=== PATIENT | female | born 1940 | race African-American/Black ===

== ENCOUNTER 2016-11-18 12:47 | Inpatient (IN) | payer MEDICARE, OTHER ==
[2016-11-18 13:10] VITALS: BP 140/48
--- NOTE | 2016-11-18 14:02 | ED Physician Chart ---
Chief Complaint/HPI - Patient Information Date Seen:: 11/18/16 Time Seen:: 13:10 Chief Complaint:: AMS/ Altered Mental Status Changes History of Present Illness:: pt presents with altered mental status changes with increased confusion and dementia; no LOC, C/P, SOB, Abd. pain, A/N/V/D/C, fever, chills, H/As, paresthesias, weakness, vertigo Allergies:: Allergies Allergy/AdvReac Type Severity Reaction Status Date / Time No Known Allergies Allergy Verified 11/18/16 13:02 Vitals:: Vital Signs - 8 hr 11/18/16 11/18/16 13:09 13:10 Temp 97.5 F HR 67 RR 16 BP 140/48 140/48 O2 Sat % 92 Historian:: Patient, Family Member Review:: Nurse's Note Reviewed Review of Systems - Review of Systems General/Constitutional: Fever, Chills, No weight loss, Weakness, No diaphoresis , No edema, No loss of appetite Skin: No skin lesions, No rash, No bruising Head: Headache, No light-headedness Eyes: No loss of vision, No pain, No diplopia ENT: No earache, No sore throat, No tinnitus Neck: No neck pain, No swelling, No thyromegaly, No stiffness, No mass noted Cardio Vascular: No chest pain, No palpitations, No PND, No orthopnea, No edema Pulmonary: No SOB, Cough, No sputum, No wheezing GI: Nausea, Vomiting, Diarrhea, No pain, No melena, No hematochezia, No constipation, No hematemesis G/U: No dysuria, No frequency, No hematuria Musculoskeletal: No bone or joint pain, No back pain, No muscle pain Endocrine: No polyuria, No polydipsia Psychiatric: No prior psych history, No depression, No anxiety, No suicidal ideation Hematopoietic: No bruising, No lymphadenopathy Allergic/Immuno: No urticaria, No angioedema Neurological: No syncope, No focal symptoms, Weakness, No paresthesia, Headache , No seizure, No dizziness, Confusion, No vertigo Past Medical History - Past Medical History Past Medical History: Arthritis, Dementia, Other (Lung Cancer) Family History: Diabetes Melitus, HTN, Cancer Social History: Smoker, No Alcohol, No Drug Use Surgical History: None Psychiatricy History: Dementia Medication: Reviewed Family Medical History - Family Member Son Living Status: Still Living Hx Family Cancer: No Hx Family Hypertension: No Hx Family Stroke: No Hx Family Diabetes: No Hx Family Seizures: No Hx Family Dementia: No Hx Family AIDS: No Hx Family Psychiatric Problems: No Physical Exam - Physical Examination General/Constitutional: Awake, Well-developed, well-nourished, Alert, No distress, GCS 15, Non-toxic appearing, Ambulatory Head: Atraumatic Eyes: Lids, conjuctiva normal, PERRL, EOMI Skin: Nl inspection, No rash, No skin lesions, No ecchymosis, Well hydrated, No lymphadenopathy ENMT: External ears, nose nl, Nasal exam nl, Lips, teeth, gums nl Neck: Nontender, Full ROM w/o pain, No JVD, No nuchal rigidity, No bruit, No mass, No stridor Respiratory: Nl effort/Exclusion, Clear to Auscultation, No Wheeze/Rhonchi/Rales Cardio Vascular: RRR, No murmur, gallop, rubs, NL S1 S2 GI: No tenderness/rebounding/guarding, No organomegaly, No hernia, Normal BS's, Nondistended, No mass/bruits, No McBurney tenderness : No CVA tenderness Extremities: No tenderness or effusion, Full ROM, normal strength in all extremities, No edema, Normal digits & nails Neuro/Psych: Alert/oriented, DTR's symmetric, Normal sensory exam, Normal motor strength, Judgement/insight normal, Mood normal, Normal gait, No focal deficits Other Neuro/Psych comments:: Disoriented and confused Misc: normal gait, Normal back, No paraspinal tenderness Labs/Radiology/EKG Results - Lab Results Results: BNP: 382 - Radiology Results Results: X-Rays: NAD - EKG Interpretations Rate & Rhythm: NSR Comments:: non-specific ST-T changes ED Septic Shock - . Is Septic Shock (SBP<90, OR Lactate>4 mmol\L) present?: No - <6hrs of presentation: Vital Signs: Vital Signs - 8 hr 11/18/16 11/18/16 13:09 13:10 Temp 97.5 F HR 67 RR 16 BP 140/48 140/48 O2 Sat % 92 Reassessment (Disposition) - Reassessment Reassessment Condition:: Improved - Diagnosis Diagnosis:: Dementia; R/O Aizheimer's Disease - Aftercare/Follow up Instructions Aftercare/Follow-Up Instructions:: Counseled pt regarding lab results/diagnosis & need follow up, Counseled pt & family regarding lab results/diagnosis & need follow up - Patient Disposition Discharge/Transfer:: Acute Care w/in this hosp Accepting Physician:: Dr. Curry Time Called:: 1600 Time Responded:: 16:00 Admitted to:: [facility] Spoke to:: Dr. Seals Admitting Psych Physician:: Dr. Seals Condition at Disposition:: Stable, Improved ED Discharge Plan - Patient Disposition Instructions: Psychosis
[2016-11-18 14:29] LABS: % BASOPHILS 0.4 % (0.0-2.0); % EOSINOPHILS 0.6 % (0.0-5.0); % LYMPHOCYTES 15.1 % (20.0-50.0); % MONOCYTES 4.7 % (2.0-10.0); % NEUTROPHILS 79.2 % (40.0-80.0); HEMATOCRIT 34.7 % (35.0-45.0); HEMOGLOBIN 11.6 gm/dL (11.7-16.1); MEAN CELL VOLUME 87.8 fl (81-100); MEAN CORPUSCULAR HEMOGLOBIN 29.4 pg (27.0-31.0); MEAN CORPUSCULAR HGB CONC 33.5 pg (28.0-36.0); MEAN PLATELET VOLUME 6.5 fl; NEUTROPHILE ABSOLUTE 4.6 Th/cmm (1.8-8.0); PLATELET COUNT 255 Th/cmm (150-400); RED BLOOD COUNT 3.95 Mil/cmm (3.80-5.20); WHITE BLOOD COUNT 5.8 Th/cmm (4.8-10.8)
[2016-11-18 14:45] LABS: ANION GAP 7.5 (7.0-16.0); BUN - UREA NITROGEN 26 mg/dL (7-25); CALCIUM SERUM 9.8 mg/dL (8.6-10.3); CARBON DIOXIDE 31.7 mEq/L (21.0-31.0); CHLORIDE 106 mEq/L (98-107); CHOLESTEROL 236 mg/dL (<200); GLUCOSE 100 mg/dL (70-105); POTASSIUM SERUM 4.2 mEq/L (3.5-5.1); SODIUM SERUM 141 mEq/L (136-145); TRIGLYCERIDES 116 mg/dL (<150)
[2016-11-18 14:46] LABS: INR 0.92 (0.5-1.4); PROTHROMBIN TIME (TEST) 9.6 SECONDS (9.5-11.5)
[2016-11-18 14:47] LABS: TROP I 0.01 ng/mL (0.01-0.05)
--- NOTE | 2016-11-18 15:27 | Diagnostic Imaging Report ---
CT scan of the brain without intravenous contrast HISTORY: Stroke, CVA Total DLP equals 545 CTDI equals 31.9 Axial sections were obtained from the base of the skull to the vertex. There is prominence/enlargement of the ventricular system size. Associated enlargement of cerebral sulci and subarachnoid cisterns. Findings are consistent with changes of generalized cerebral atrophy. No acute parenchymal abnormalities. No acute cerebral hemorrhage. Hypodensity is seen within the supratentorial white matter regions without mass effect. The findings may be associated with chronic small vessel ischemic disease. No extra-axial masses or abnormal fluid collections. Atherosclerotic calcification seen in the region of the vertebral arteries at the base of the skull. IMPRESSION: 1. No acute abnormalities 2. Cerebral atrophy 3. Supratentorial white matter changes that may reflect chronic small vessel ischemic disease 4. Atherosclerotic vascular changes If indicated, a follow-up MRI exam would provide for further characterization and assessment of the above findings.
--- NOTE | 2016-11-18 15:55 | Diagnostic Imaging Report ---
Portable chest x-ray HISTORY: Pain The heart size appears to be within normal limits. Extensive pleural thickening associated with volume loss and upward retraction of the left hilum. Findings most likely related to old inflammatory disease. There is generalized accentuation of the interstitial markings through the right lung. No definite focal processes IMPRESSION: 1. Pleural and parenchymal changes within the left upper hemithorax that appear chronic. 2. Generalized accentuation of interstitial markings throughout the right lung. No definite focal processes
[2016-11-18 20:45] LABS: URINE BILIRUBIN NEGATIVE (NEGATIVE); URINE BLOOD SMALL (NEGATIVE); URINE COLOR YELLOW; URINE GLUCOSE (UA) NEGATIVE (NEGATIVE); URINE KETONE TRACE mg/dL (NEGATIVE); URINE PROTEIN TRACE mg/dL (NEGATIVE); URINE UROBILINOGEN 0.2 E.U./dL (0.2 - 1.0)
[2016-11-18 20:46] LABS: URINE BACTERIA NONE SEEN /hpf (NONE SEEN); URINE EPITHELIAL CELLS NONE SEEN /lpf (FEW); URINE WBC NONE SEEN /hpf (0-5)
[2016-11-18] MEDS ORDERED: MIRTAZAPINE 30 MG PO SCH (21:00)
[2016-11-18] MEDS ORDERED: Magnesium Hydroxide (MOM) 30 mL UDC PO PRN (22:54)
[2016-11-18] MEDS ORDERED: Maalox 30 mL Cup PO PRN (22:54)
[2016-11-18] MEDS ORDERED: Albuterol Nebulizer 2.5mg/3mL HHN SCH (23:00)
[2016-11-19] MEDS: Multivitamin Tab PO SCH (09:37)
[2016-11-19] MEDS: Albuterol Nebulizer 2.5mg/3mL HHN PRN (20:14)
--- NOTE | 2016-11-19 20:34 | Psychosocial Evaluation ---
DATE OF SERVICE: 11/18/2016 Information obtained by interviewing the patient as well as talking to her son and [id number] who happened to be there by the bedside. JUSTIFICATION FOR HOSPITALIZATION: The patient is admitted here on a voluntary basis in view of her acute psychosis. CHIEF COMPLAINT: "I am scared." HISTORY OF PRESENT ILLNESS: This is the first psychiatric hospitalization to [facility] for this 76-year-old -[place] woman who is reported to have been having problems with confusion and memory issues for the past couple of years and it has been getting worse lately. The patient is reported to have been saying things, hearing voices and is very paranoid and is not making much sense. The patient has been trying to wander off and it has been becoming very difficult for the family to contain her. The patient's son is stating that he is in the process of trying to sell mom's place and wants to place her in a shelter facility and since patient could not be contained at a lower level of care, they brought over here for stabilization. Prior to the hospitalization, the patient has been on Remeron 30 mg at bedtime and also receiving gabapentin 300 mg 3 times a day. The patient's sleep and appetite prior to the hospitalization are reported to be poor. PAST PSYCHIATRIC HISTORY: None. MEDICAL HISTORY AND PHYSICAL EXAMINATION: Requested done by Dr. Star Sellers. SUBSTANCE ABUSE HISTORY: None. PHYSICAL OR SEXUAL ABUSE HISTORY: None. LEGAL PROBLEMS: None at this time. STRENGTH AND ASSETS: ____. MENTAL STATUS EXAMINATION: The patient is a 76-year-old thin built woman who is sitting in the wheelchair and cooperative. Eye contact is fair. Mood is noted to be dysphoric. Coping skills are noted to be very poor. The patient has paranoid delusions. The patient is also having visual hallucinations. Insight and judgment at this time are very much impaired. Impulse control seems to be limited. The patient is reported to have been wandering off. The patient's short and long-term are noted to very poor. The patient has been having difficult time to give her date of , but patient is talking about the things from her childhood, but is not able to recall anything that happened yesterday or ____ yesterday. Attention span is also noted to be very poor. The patient is very confused and has been putting herself in a dangerous situation. DIAGNOSTIC IMPRESSION: AXIS I: Psychotic disorder, not otherwise specified. AXIS II: None. AXIS III: As per Dr. Graves. IMMEDIATE TREATMENT PLAN: The patient is going to be observed on inpatient unit, provided with supportive psychotherapy. The Remeron is going to be decreased to 15 mg at bedtime and the patient is going to be placed on 12.5 mg of the Seroquel. The patient is going to be closely monitored. ESTIMATED LENGTH OF STAY: 5-7 days. DISCHARGE CRITERIA: When she no longer a threat to self or others and be able to cope up with the stress. JOB# [id number]
--- NOTE | 2016-11-20 00:17 | History & Physical ---
ADMIT DATE: 11/19/2016 HISTORY OF PRESENT ILLNESS: The patient was admitted through the Emergency Room at [facility] to Geropsych Unit, and the patient was seen by ____ who called me said that this elderly patient came to the ER with a history of altered mental status, increased agitation, and increased confusion. The patient had no history of fever, chills, rigors, etc. REVIEW OF SYSTEMS: Essentially was negative. PHYSICAL EXAMINATION: VITAL SIGNS: As noted, were stable. HEAD: Normal. ENT: Normal. NECK: Supple and nontender. LUNGS: Clear. CARDIOVASCULAR SYSTEM: S1 and S2 heard. ABDOMEN: Soft. Bowel sounds are heard. CENTRAL NERVOUS SYSTEM: The patient is confused and also has history of arthritis. DIAGNOSES: Severe dementia, altered level of consciousness, history of dementia, history of arthritis, history of hypertension and diabetes in the family ____. This patient is going to be admitted and Dr. Curry, the psychiatrist who is going to take care of the patient ____ diagnosis of acute psychosis, altered level of consciousness, increased agitation, increasing dementia, rule out metabolic disorder. PLAN: The patient is going to be admitted. I will follow medically and we will check the ____ level. JOB# [id number]
--- NOTE | 2016-11-20 08:18 | Progress Notes ---
DATE: 11/19/2016 PSYCHIATRIC PROGRESS NOTE TIME PATIENT SEEN: 6:15 p.m. SUBJECTIVE: Staff was spoken to. The patient is interviewed. Mood is noted to be irritable. Affect is constricted. The patient is very confused. The patient has been still responding to internal stimuli and is noted to be very paranoid. The patient is currently being maintained with the Seroquel 12.5 mg at bedtime along with gabapentin 300 mg at bedtime. The patient has been able to tolerate the medications. No side effects to the medications are noted at this time. ASSESSMENT: The patient is still psychotic. PLAN: To continue the patient with the current medications. I encouraged the patient to verbalize the concerns rather than to act out. JOB# [id number]
[2016-11-20] MEDS: Multivitamin Tab PO SCH (09:01)
--- NOTE | 2016-11-21 07:44 | Psychosocial Evaluation ---
DATE OF SERVICE: 11/20/2016 PSYCHIATRIC PROGRESS NOTE TIME PATIENT SEEN: 9:15 a.m. SUBJECTIVE: Staff was spoken to. The patient is interviewed. Mood is noted to be irritable. Affect is constricted. The patient has paranoid delusions, but denies any command hallucinations. The patient has been having difficult time to cope with the stress. The patient is in a wheelchair and the patient is being closely monitored for any falls. ASSESSMENT: The patient is still paranoid and has been having visual hallucinations and paranoid delusions. PLAN: To gradually increase the dose on Seroquel and follow her up with supportive therapy. JOB# [id number]
[2016-11-21] MEDS: Multivitamin Tab PO SCH (09:34)
--- NOTE | 2016-11-21 15:44 | General Progress Note ---
Subjective - Review of Systems Events since last encounter: patient seems confused Objective - Results Result Diagrams: 11/18/16 14:19 11/18/16 14:19 Recent Labs: Laboratory Last Values WBC 5.8 Th/cmm (4.8-10.8) 11/18/16 14:19 RBC 3.95 Mil/cmm (3.80-5.20) 11/18/16 14:19 Hgb 11.6 gm/dL (11.7-16.1) L 11/18/16 14:19 Hct 34.7 % (35.0-45.0) L 11/18/16 14:19 MCV 87.8 fl (81-100) 11/18/16 14:19 MCH 29.4 pg (27.0-31.0) 11/18/16 14:19 MCHC Differential 33.5 pg (28.0-36.0) 11/18/16 14:19 RDW 15.0 % (11.5-20.0) 11/18/16 14:19 Plt Count 255 Th/cmm (150-400) 11/18/16 14:19 MPV 6.5 fl 11/18/16 14:19 Neutrophils % 79.2 % (40.0-80.0) 11/18/16 14:19 Lymphocytes % 15.1 % (20.0-50.0) L 11/18/16 14:19 Monocytes % 4.7 % (2.0-10.0) 11/18/16 14:19 Eosinophils % 0.6 % (0.0-5.0) 11/18/16 14:19 Basophils % 0.4 % (0.0-2.0) 11/18/16 14:19 PT 9.6 SECONDS (9.5-11.5) 11/18/16 14:19 INR 0.92 (0.5-1.4) 11/18/16 14:19 Sodium 141 mEq/L (136-145) 11/18/16 14:19 Potassium 4.2 mEq/L (3.5-5.1) 11/18/16 14:19 Chloride 106 mEq/L (98-107) 11/18/16 14:19 Carbon Dioxide 31.7 mEq/L (21.0-31.0) H 11/18/16 14:19 Anion Gap 7.5 (7.0-16.0) 11/18/16 14:19 BUN 26 mg/dL (7-25) H 11/18/16 14:19 Creatinine 1.0 mg/dL (0.6-1.2) 11/18/16 14:19 Est GFR ( Amer) TNP 11/18/16 14:19 Est GFR (Non-Af Amer) TNP 11/18/16 14:19 BUN/Creatinine Ratio 26.0 11/18/16 14:19 Glucose 100 mg/dL (70-105) 11/18/16 14:19 Calcium 9.8 mg/dL (8.6-10.3) 11/18/16 14:19 Creatine Kinase 79 U/L (30-223) 11/18/16 14:19 Troponin I 0.01 ng/mL (0.01-0.05) 11/18/16 14:19 B-Natriuretic Peptide 382.0 pg/mL (5.0-100.0) H 11/18/16 14:19 Triglycerides 116 mg/dL (<150) 11/18/16 14:19 Cholesterol 236 mg/dL (<200) H 11/18/16 14:19 LDL Cholesterol Direct 126 mg/dL (75-193) 11/18/16 14:19 HDL Cholesterol 89 mg/dL (23-92) 11/18/16 14:19 Urine Source RANDOM 11/18/16 14:45 Urine Color YELLOW 11/18/16 14:45 Urine Clarity CLEAR (CLEAR) 11/18/16 14:45 Urine pH 6.0 11/18/16 14:45 Ur Specific [place] 1.020 (1.005-1.030) 11/18/16 14:45 Urine Protein TRACE mg/dL (NEGATIVE) 11/18/16 14:45 Urine Glucose (UA) NEGATIVE mg/dL (NEGATIVE) 11/18/16 14:45 Urine Ketones TRACE mg/dL (NEGATIVE) 11/18/16 14:45 Urine Blood SMALL (NEGATIVE) H 11/18/16 14:45 Urine Nitrate NEGATIVE (NEGATIVE) 11/18/16 14:45 Urine Bilirubin NEGATIVE (NEGATIVE) 11/18/16 14:45 Urine Urobilinogen 0.2 E.U./dL (0.2 - 1.0) 11/18/16 14:45 Ur Leukocyte Esterase NEGATIVE (NEGATIVE) 11/18/16 14:45 Urine RBC 2-5 /hpf (0-5) 11/18/16 14:45 Urine WBC NONE SEEN /hpf (0-5) 11/18/16 14:45 Ur Epithelial Cells NONE SEEN /lpf (FEW) 11/18/16 14:45 Urine Bacteria NONE SEEN /hpf (NONE SEEN) 11/18/16 14:45 - Physical Exam Vitals and I&O: Vital Signs Temp 97.8 F 11/21/16 15:27 Pulse 88 11/21/16 15:27 Resp 21 11/21/16 15:27 BP 152/70 11/21/16 15:27 Pulse Ox 97 11/21/16 15:27 Intake & Output 11/20/16 11/21/16 11/21/16 18:59 06:59 18:59 Intake Total 960 Balance 960 Intake: Oral 960 Other: # Voids 3 2 # Bowel Movements 1 Stool Characteristics Formed Formed Formed Active Medications: Current Medications Acetaminophen (Tylenol) 650 mg PO Q4HR PRN PRN Reason: Mild Pain / Temp above 100 Stop: 01/17/17 22:53 Al Hydrox/Mg Hydrox/Simethicone (Maalox) 30 ml PO Q4HR PRN PRN Reason: GI DISTRESS Stop: 01/17/17 22:53 Albuterol Sulfate (Albuterol 2.5mg/3ml Neb Ud) 2.5 mg HHN Q4HRT PRN PRN Reason: Wheezing Stop: 01/17/17 22:59 Last Admin: 11/19/16 20:14 Dose: 2.5 mg Donepezil HCl (Aricept) 10 mg PO DAILY MAYA Stop: 01/17/17 18:44 Last Admin: 11/21/16 09:34 Dose: 10 mg Gabapentin (Neurontin) 300 mg PO HS MAYA Stop: 01/17/17 20:59 Last Admin: 11/20/16 21:10 Dose: 300 mg Lorazepam (Ativan) 0.5 mg PO BID PRN; Protocol PRN Reason: Anxiety Stop: 01/17/17 17:48 Last Admin: 11/19/16 20:41 Dose: 0.5 mg Metoprolol Tartrate (Lopressor) 12.5 mg PO BID MAYA Stop: 01/18/17 08:59 Last Admin: 11/21/16 09:34 Dose: 12.5 mg Mirtazapine (Remeron) 15 mg PO HS MAYA Stop: 01/17/17 20:59 Last Admin: 11/20/16 21:09 Dose: 15 mg Multivitamins/Vitamin C (Theragran) 1 tab PO DAILY MAYA Stop: 01/18/17 08:59 Last Admin: 11/21/16 09:34 Dose: 1 tab Quetiapine Fumarate (Seroquel) 12.5 mg PO HS MAYA PRN Reason: Protocol Stop: 01/17/17 20:59 Last Admin: 11/20/16 21:09 Dose: 12.5 mg Nutritional Asmnt/Malnutr-PDOC - Dietary Evaluation Malnutrition Findings (Please click <Entered> for more info): Nutritional Asmnt/Malnutrition Start: 11/20/16 17: 50 Text: Status: Complete Freq: Document 11/20/16 17:50 GSUN (Rec: 11/20/16 18:04 GSUN [email or web address]) Nutritional Asmnt/Malnutrition Patient General Information Nutritional Screening High Risk Screening Diagnosis Severe dementia, ALOC, rule out metabolic disorder Pertinent Medical Hx/Surgical Hx Altered mental status, increased agitation, increased confusion, arthritis Subjective Information 76 year old female. High risk for BMI <18.5. Pt was seen in north chair in rec room. Pt was alert and talkative, able to answer all of RD's questions. Pt appeared slightly agitated, RD could not get closer and perform physical assessment due to this. EMR weight 100lb, pt appeared more than 100lb. Pt stated UBW 120lb. Pt asked for dinner, stated she is always hungry, with a great appetite, lunch was great. Avg PO intake 75-100% of meals since adm, meeting nutritional needs. Teeth intact, pt denied difficulties chewing/ swallowing. Current Diet Order/ Nutrition Support Regular Pertinent Medications Maalox, Remeron, Theragran, Seroquel Pertinent Labs 11/18: BUN 26H, cholesterol 236H Nutritional Hx/Data Height 1.52 m Height (Calculated Centimeters) 152.4 Current Weight (lbs) 41.277 kg Weight (Calculated Kilograms) 41.3 Weight (Calculated Grams) 68722.9 Usual body Weight (lbs) 120 [place] Body Weight 100 Weight Status Underweight GI Symptoms Food Allergies No Skin Integrity/Comment: Mike Graham. Skin intact. Current %PO Good (75-100%) Estimated Nutritional Goals Calories/Kcals/Kg UBW 120lb/54.5kg Kcals Calculated 1363-1635kcal (25-30kcal/kg) Protein g/kg: UBW Protein Calculated 55g (1g/kg) Fluid: ml [id number] Nutritional Problem 1. Problem Problem No nutrition problems. Intervention/Recommendation Comments 1. Continue with curent diet. Avg PO intake is adequate. 2. Monitor weight, perform physical assessment. EMR weight 91lb, BMI 17.8 underweight. Pt report UBW 120lb. Expected Outcomes/Goals Expected Outcomes/Goals 1. PO intake continue to meet at least 75% of estimated nutritional needs.
--- NOTE | 2016-11-21 21:56 | History & Physical ---
ADMIT DATE: 11/21/2016 This patient was seen by . The patient was admitted for altered mental status with confusion, dementia, and the patient had no fever and no chills. REVIEW OF SYSTEMS: Otherwise, negative. PAST MEDICAL HISTORY: Poor historian. The patient has history of arthritis and dementia. FAMILY HISTORY: Diabetes and hypertension. PHYSICAL EXAMINATION: GENERAL: Alert, oriented, elderly, not in acute distress. HEAD: Normal. ENT: Normal. NECK: Supple and nontender. LUNGS: Clear. CARDIOVASCULAR SYSTEM: S1 and S2 heard. ABDOMEN: Soft. LABORATORY DATA: GCS is 15. BNP was at , and x-ray was negative. EKG showed nonspecific changes. DIAGNOSES: Acute confusion, acute psychosis, and history of Alzheimer dementia. PLAN: The patient is being admitted and I will follow medically. JOB# [id number]
--- NOTE | 2016-11-22 04:05 | Progress Notes ---
DATE: 11/21/2016 TIME PATIENT SEEN: 4:15 p.m. SUBJECTIVE: Staff was spoken to. The patient is interviewed. Mood is noted to be irritable. Affect is constricted. Insight and judgment are noted to be still impaired. Impulse control is noted to be poor. Coping skills are also noted to be poor. The patient has been having difficult time to cope with the stress. The patient has been very confused and has been accusing people doing things behind her back and she is not making any sense. The patient's son came to visit yesterday and he has been spoken to . ASSESSMENT: The patient is still grossly psychotic and not making any sense. PLAN: To continue the patient with the current medication and followup. JOB# [id number]
[2016-11-22] MEDS: Multivitamin Tab PO SCH (09:10)
--- NOTE | 2016-11-23 06:21 | General Progress Note ---
Subjective - Review of Systems Events since last encounter: patient with no distress still confused Objective - Results Result Diagrams: 11/18/16 14:19 11/18/16 14:19 Recent Labs: Laboratory Last Values WBC 5.8 Th/cmm (4.8-10.8) 11/18/16 14:19 RBC 3.95 Mil/cmm (3.80-5.20) 11/18/16 14:19 Hgb 11.6 gm/dL (11.7-16.1) L 11/18/16 14:19 Hct 34.7 % (35.0-45.0) L 11/18/16 14:19 MCV 87.8 fl (81-100) 11/18/16 14:19 MCH 29.4 pg (27.0-31.0) 11/18/16 14:19 MCHC Differential 33.5 pg (28.0-36.0) 11/18/16 14:19 RDW 15.0 % (11.5-20.0) 11/18/16 14:19 Plt Count 255 Th/cmm (150-400) 11/18/16 14:19 MPV 6.5 fl 11/18/16 14:19 Neutrophils % 79.2 % (40.0-80.0) 11/18/16 14:19 Lymphocytes % 15.1 % (20.0-50.0) L 11/18/16 14:19 Monocytes % 4.7 % (2.0-10.0) 11/18/16 14:19 Eosinophils % 0.6 % (0.0-5.0) 11/18/16 14:19 Basophils % 0.4 % (0.0-2.0) 11/18/16 14:19 PT 9.6 SECONDS (9.5-11.5) 11/18/16 14:19 INR 0.92 (0.5-1.4) 11/18/16 14:19 Sodium 141 mEq/L (136-145) 11/18/16 14:19 Potassium 4.2 mEq/L (3.5-5.1) 11/18/16 14:19 Chloride 106 mEq/L (98-107) 11/18/16 14:19 Carbon Dioxide 31.7 mEq/L (21.0-31.0) H 11/18/16 14:19 Anion Gap 7.5 (7.0-16.0) 11/18/16 14:19 BUN 26 mg/dL (7-25) H 11/18/16 14:19 Creatinine 1.0 mg/dL (0.6-1.2) 11/18/16 14:19 Est GFR ( Amer) TNP 11/18/16 14:19 Est GFR (Non-Af Amer) TNP 11/18/16 14:19 BUN/Creatinine Ratio 26.0 11/18/16 14:19 Glucose 100 mg/dL (70-105) 11/18/16 14:19 Calcium 9.8 mg/dL (8.6-10.3) 11/18/16 14:19 Creatine Kinase 79 U/L (30-223) 11/18/16 14:19 Troponin I 0.01 ng/mL (0.01-0.05) 11/18/16 14:19 B-Natriuretic Peptide 382.0 pg/mL (5.0-100.0) H 11/18/16 14:19 Triglycerides 116 mg/dL (<150) 11/18/16 14:19 Cholesterol 236 mg/dL (<200) H 11/18/16 14:19 LDL Cholesterol Direct 126 mg/dL (75-193) 11/18/16 14:19 HDL Cholesterol 89 mg/dL (23-92) 11/18/16 14:19 Urine Source RANDOM 11/18/16 14:45 Urine Color YELLOW 11/18/16 14:45 Urine Clarity CLEAR (CLEAR) 11/18/16 14:45 Urine pH 6.0 11/18/16 14:45 Ur Specific [place] 1.020 (1.005-1.030) 11/18/16 14:45 Urine Protein TRACE mg/dL (NEGATIVE) 11/18/16 14:45 Urine Glucose (UA) NEGATIVE mg/dL (NEGATIVE) 11/18/16 14:45 Urine Ketones TRACE mg/dL (NEGATIVE) 11/18/16 14:45 Urine Blood SMALL (NEGATIVE) H 11/18/16 14:45 Urine Nitrate NEGATIVE (NEGATIVE) 11/18/16 14:45 Urine Bilirubin NEGATIVE (NEGATIVE) 11/18/16 14:45 Urine Urobilinogen 0.2 E.U./dL (0.2 - 1.0) 11/18/16 14:45 Ur Leukocyte Esterase NEGATIVE (NEGATIVE) 11/18/16 14:45 Urine RBC 2-5 /hpf (0-5) 11/18/16 14:45 Urine WBC NONE SEEN /hpf (0-5) 11/18/16 14:45 Ur Epithelial Cells NONE SEEN /lpf (FEW) 11/18/16 14:45 Urine Bacteria NONE SEEN /hpf (NONE SEEN) 11/18/16 14:45 - Physical Exam Vitals and I&O: Vital Signs Temp 97.6 F 11/22/16 14:00 Pulse 79 11/22/16 20:10 Resp 18 11/22/16 20:10 BP 104/61 11/22/16 16:25 Pulse Ox 96 11/22/16 20:10 Intake & Output 11/22/16 11/22/16 11/23/16 06:59 18:59 06:59 Intake Total 240 700 Balance 240 700 Intake: Oral 240 700 Other: # Voids 2 3 # Bowel Movements 0 Active Medications: Current Medications Acetaminophen (Tylenol) 650 mg PO Q4HR PRN PRN Reason: Mild Pain / Temp above 100 Stop: 01/17/17 22:53 Al Hydrox/Mg Hydrox/Simethicone (Maalox) 30 ml PO Q4HR PRN PRN Reason: GI DISTRESS Stop: 01/17/17 22:53 Albuterol Sulfate (Albuterol 2.5mg/3ml Neb Ud) 2.5 mg HHN Q4HRT PRN PRN Reason: Wheezing Stop: 01/17/17 22:59 Last Admin: 11/19/16 20:14 Dose: 2.5 mg Donepezil HCl (Aricept) 10 mg PO DAILY MAYA Stop: 01/17/17 18:44 Last Admin: 11/22/16 09:10 Dose: 10 mg Gabapentin (Neurontin) 300 mg PO HS MAYA Stop: 01/17/17 20:59 Last Admin: 11/22/16 20:44 Dose: 300 mg Lorazepam (Ativan) 0.5 mg PO BID PRN; Protocol PRN Reason: Anxiety Stop: 01/17/17 17:48 Last Admin: 11/19/16 20:41 Dose: 0.5 mg Metoprolol Tartrate (Lopressor) 12.5 mg PO BID MAYA Stop: 01/18/17 08:59 Last Admin: 11/22/16 16:25 Dose: Not Given Mirtazapine (Remeron) 15 mg PO HS MAYA Stop: 01/17/17 20:59 Last Admin: 11/22/16 20:44 Dose: 15 mg Multivitamins/Vitamin C (Theragran) 1 tab PO DAILY MAYA Stop: 01/18/17 08:59 Last Admin: 11/22/16 09:10 Dose: 1 tab Quetiapine Fumarate (Seroquel) 25 mg PO HS MAYA PRN Reason: Protocol Stop: 01/20/17 18:59 Last Admin: 11/22/16 20:44 Dose: 25 mg Nutritional Asmnt/Malnutr-PDOC - Dietary Evaluation Malnutrition Findings (Please click <Entered> for more info): Nutritional Asmnt/Malnutrition Start: 11/20/16 17: 50 Text: Status: Complete Freq: Document 11/20/16 17:50 GSUN (Rec: 11/20/16 18:04 GSUN [email or web address]) Nutritional Asmnt/Malnutrition Patient General Information Nutritional Screening High Risk Screening Diagnosis Severe dementia, ALOC, rule out metabolic disorder Pertinent Medical Hx/Surgical Hx Altered mental status, increased agitation, increased confusion, arthritis Subjective Information 76 year old female. High risk for BMI <18.5. Pt was seen in north chair in rec room. Pt was alert and talkative, able to answer all of RD's questions. Pt appeared slightly agitated, RD could not get closer and perform physical assessment due to this. EMR weight 100lb, pt appeared more than 100lb. Pt stated UBW 120lb. Pt asked for dinner, stated she is always hungry, with a great appetite, lunch was great. Avg PO intake 75-100% of meals since adm, meeting nutritional needs. Teeth intact, pt denied difficulties chewing/ swallowing. Current Diet Order/ Nutrition Support Regular Pertinent Medications Maalox, Remeron, Theragran, Seroquel Pertinent Labs 11/18: BUN 26H, cholesterol 236H Nutritional Hx/Data Height 1.52 m Height (Calculated Centimeters) 152.4 Current Weight (lbs) 41.277 kg Weight (Calculated Kilograms) 41.3 Weight (Calculated Grams) 68379.9 Usual body Weight (lbs) 120 [place] Body Weight 100 Weight Status Underweight GI Symptoms Food Allergies No Skin Integrity/Comment: Mike 19. Skin intact. Current %PO Good (75-100%) Estimated Nutritional Goals Calories/Kcals/Kg UBW 120lb/54.5kg Kcals Calculated 1363-1635kcal (25-30kcal/kg) Protein g/kg: UBW Protein Calculated 55g (1g/kg) Fluid: ml [id number] Nutritional Problem 1. Problem Problem No nutrition problems. Intervention/Recommendation Comments 1. Continue with curent diet. Avg PO intake is adequate. 2. Monitor weight, perform physical assessment. EMR weight 91lb, BMI 17.8 underweight. Pt report UBW 120lb. Expected Outcomes/Goals Expected Outcomes/Goals 1. PO intake continue to meet at least 75% of estimated nutritional needs.
--- NOTE | 2016-11-23 06:43 | Progress Notes ---
DATE: 11/22/2016 SUBJECTIVE: The patient was seen in her room. Per the patient, she is feeling better. Denies any depression, denies any anxiety, denies any suicidal ideation, denies any homicidal ideation, mood appears to be guarded at this time. Otherwise, the patient seen in no acute distress. OBJECTIVE: VITAL SIGNS: Temperature 97.8, heart rate of 99, blood pressure 153/74, respirations of 20, saturation 97% on room air. HEENT: Head is atraumatic and normocephalic. Eyes: Bilateral conjunctivae are clear. Bilateral pupils are equally round and reactive. NECK: Supple. No JVD. CARDIOVASCULAR: S1 and S2 without murmur. PULMONARY: Clear to auscultation. GASTROINTESTINAL: Soft and nontender without guarding. Positive bowel sounds. MUSCULOSKELETAL: No edema, no clubbing, no cyanosis. ASSESSMENT: 1. Acute psychosis. 2. Dementia. 3. Osteoarthritis. 4. Hypertension. 5. Diabetes. PLAN: We will continue to keep the patient as inpatient in Gerops[facility] Unit. We will follow up with a psychiatrist to monitor the patient's behavior: The treatment plans were discussed with Dr. Graves. JOB# [id number]
--- NOTE | 2016-11-23 08:23 | Progress Notes ---
DATE: 11/22/2016 SUBJECTIVE: Staff was spoken to the staff, chart is reviewed. The patient continues to be confused and irritable and angry. The patient is pacing on the unit. Insight and judgment are noted to be very much impaired. The patient has been having visual hallucinations and the patient is going on a tangent. The patient has no insight into her illness. The patient is very confused. ASSESSMENT: The patient is still psychotic and demented. PLAN: To continue the patient with the supportive therapy. I encouraged the patient to verbalize the concerns rather than to act out. The patient is not ready to be discharged to a lower level of care yet. JOB# [id number]
[2016-11-23] MEDS: Albuterol Nebulizer 2.5mg/3mL HHN PRN (08:42)
[2016-11-23] MEDS: Multivitamin Tab PO SCH (08:42)
--- NOTE | 2016-11-24 06:16 | Progress Notes ---
DATE: 11/23/2016 PSYCHIATRIC PROGRESS NOTE TIME PATIENT SEEN: 1:30 p.m. SUBJECTIVE: Staff was spoken to. The patient is interviewed. Mood is noted to be depressed. Affect is constricted. The patient is very confused and pacing on the unit. Insight and judgment at this time are noted to be very much impaired. Coping skills are noted to be poor. ASSESSMENT: The patient is still grossly psychotic and impulsive. PLAN: To continue the patient with the supportive therapy and I encouraged the patient to verbalize the concerns rather than to act out. The patient is not ready to be discharged to a lower level of care yet. JOB# [id number]
[2016-11-24] MEDS: Multivitamin Tab PO SCH (08:22)
--- NOTE | 2016-11-24 09:20 | General Progress Note ---
Subjective - Review of Systems Events since last encounter: no distress patient states feeling better Objective - Results Result Diagrams: 11/18/16 14:19 11/18/16 14:19 Recent Labs: Laboratory Last Values WBC 5.8 Th/cmm (4.8-10.8) 11/18/16 14:19 RBC 3.95 Mil/cmm (3.80-5.20) 11/18/16 14:19 Hgb 11.6 gm/dL (11.7-16.1) L 11/18/16 14:19 Hct 34.7 % (35.0-45.0) L 11/18/16 14:19 MCV 87.8 fl (81-100) 11/18/16 14:19 MCH 29.4 pg (27.0-31.0) 11/18/16 14:19 MCHC Differential 33.5 pg (28.0-36.0) 11/18/16 14:19 RDW 15.0 % (11.5-20.0) 11/18/16 14:19 Plt Count 255 Th/cmm (150-400) 11/18/16 14:19 MPV 6.5 fl 11/18/16 14:19 Neutrophils % 79.2 % (40.0-80.0) 11/18/16 14:19 Lymphocytes % 15.1 % (20.0-50.0) L 11/18/16 14:19 Monocytes % 4.7 % (2.0-10.0) 11/18/16 14:19 Eosinophils % 0.6 % (0.0-5.0) 11/18/16 14:19 Basophils % 0.4 % (0.0-2.0) 11/18/16 14:19 PT 9.6 SECONDS (9.5-11.5) 11/18/16 14:19 INR 0.92 (0.5-1.4) 11/18/16 14:19 Sodium 141 mEq/L (136-145) 11/18/16 14:19 Potassium 4.2 mEq/L (3.5-5.1) 11/18/16 14:19 Chloride 106 mEq/L (98-107) 11/18/16 14:19 Carbon Dioxide 31.7 mEq/L (21.0-31.0) H 11/18/16 14:19 Anion Gap 7.5 (7.0-16.0) 11/18/16 14:19 BUN 26 mg/dL (7-25) H 11/18/16 14:19 Creatinine 1.0 mg/dL (0.6-1.2) 11/18/16 14:19 Est GFR ( Amer) TNP 11/18/16 14:19 Est GFR (Non-Af Amer) TNP 11/18/16 14:19 BUN/Creatinine Ratio 26.0 11/18/16 14:19 Glucose 100 mg/dL (70-105) 11/18/16 14:19 Calcium 9.8 mg/dL (8.6-10.3) 11/18/16 14:19 Creatine Kinase 79 U/L (30-223) 11/18/16 14:19 Troponin I 0.01 ng/mL (0.01-0.05) 11/18/16 14:19 B-Natriuretic Peptide 382.0 pg/mL (5.0-100.0) H 11/18/16 14:19 Triglycerides 116 mg/dL (<150) 11/18/16 14:19 Cholesterol 236 mg/dL (<200) H 11/18/16 14:19 LDL Cholesterol Direct 126 mg/dL (75-193) 11/18/16 14:19 HDL Cholesterol 89 mg/dL (23-92) 11/18/16 14:19 Urine Source RANDOM 11/18/16 14:45 Urine Color YELLOW 11/18/16 14:45 Urine Clarity CLEAR (CLEAR) 11/18/16 14:45 Urine pH 6.0 11/18/16 14:45 Ur Specific [place] 1.020 (1.005-1.030) 11/18/16 14:45 Urine Protein TRACE mg/dL (NEGATIVE) 11/18/16 14:45 Urine Glucose (UA) NEGATIVE mg/dL (NEGATIVE) 11/18/16 14:45 Urine Ketones TRACE mg/dL (NEGATIVE) 11/18/16 14:45 Urine Blood SMALL (NEGATIVE) H 11/18/16 14:45 Urine Nitrate NEGATIVE (NEGATIVE) 11/18/16 14:45 Urine Bilirubin NEGATIVE (NEGATIVE) 11/18/16 14:45 Urine Urobilinogen 0.2 E.U./dL (0.2 - 1.0) 11/18/16 14:45 Ur Leukocyte Esterase NEGATIVE (NEGATIVE) 11/18/16 14:45 Urine RBC 2-5 /hpf (0-5) 11/18/16 14:45 Urine WBC NONE SEEN /hpf (0-5) 11/18/16 14:45 Ur Epithelial Cells NONE SEEN /lpf (FEW) 11/18/16 14:45 Urine Bacteria NONE SEEN /hpf (NONE SEEN) 11/18/16 14:45 - Physical Exam Vitals and I&O: Vital Signs Temp 97.6 F 11/24/16 06:24 Pulse 87 11/24/16 08:22 Resp 18 11/24/16 06:24 BP 120/71 11/24/16 08:22 Pulse Ox 96 11/24/16 06:24 Intake & Output 11/23/16 11/24/16 11/24/16 18:59 06:59 18:59 Intake Total 700 120 Balance 700 120 Intake: Oral 700 120 Other: # Voids 3 3 # Bowel Movements 0 Active Medications: Current Medications Acetaminophen (Tylenol) 650 mg PO Q4HR PRN PRN Reason: Mild Pain / Temp above 100 Stop: 01/17/17 22:53 Al Hydrox/Mg Hydrox/Simethicone (Maalox) 30 ml PO Q4HR PRN PRN Reason: GI DISTRESS Stop: 01/17/17 22:53 Albuterol Sulfate (Albuterol 2.5mg/3ml Neb Ud) 2.5 mg HHN Q4HRT PRN PRN Reason: Wheezing Stop: 01/17/17 22:59 Last Admin: 11/23/16 08:42 Dose: 2.5 mg Donepezil HCl (Aricept) 10 mg PO DAILY MAYA Stop: 01/17/17 18:44 Last Admin: 11/24/16 08:22 Dose: 10 mg Gabapentin (Neurontin) 300 mg PO HS MAYA Stop: 01/17/17 20:59 Last Admin: 11/23/16 20:44 Dose: 300 mg Lorazepam (Ativan) 0.5 mg PO BID PRN; Protocol PRN Reason: Anxiety Stop: 01/17/17 17:48 Last Admin: 11/19/16 20:41 Dose: 0.5 mg Metoprolol Tartrate (Lopressor) 12.5 mg PO BID MAYA Stop: 01/18/17 08:59 Last Admin: 11/24/16 08:22 Dose: 12.5 mg Mirtazapine (Remeron) 15 mg PO HS MAYA Stop: 01/17/17 20:59 Last Admin: 11/23/16 20:44 Dose: 15 mg Multivitamins/Vitamin C (Theragran) 1 tab PO DAILY MAYA Stop: 01/18/17 08:59 Last Admin: 11/24/16 08:22 Dose: 1 tab Quetiapine Fumarate (Seroquel) 25 mg PO HS MAYA PRN Reason: Protocol Stop: 01/20/17 18:59 Last Admin: 11/23/16 20:44 Dose: 25 mg General: No acute distress HEENT: Atraumatic Neck: Supple Cardiovascular: Regular rate Abdomen: Bowel sounds Assessment/Plan - Problem List Patient Problems: All Active Problems Acute psychosis (Acute) F23 Dementia (Acute) F03.90 Diabetes (Acute) E11.9 Hypertension (Acute) I10 Osteoarthritis (Acute) M19.90 - Plan Plan: as per psych will monitor Nutritional Asmnt/Malnutr-PDOC - Dietary Evaluation Malnutrition Findings (Please click <Entered> for more info): Nutritional Asmnt/Malnutrition Start: 11/20/16 17: 50 Text: Status: Complete Freq: Document 11/20/16 17:50 GSUN (Rec: 11/20/16 18:04 GSUN [email or web address]) Nutritional Asmnt/Malnutrition Patient General Information Nutritional Screening High Risk Screening Diagnosis Severe dementia, ALOC, rule out metabolic disorder Pertinent Medical Hx/Surgical Hx Altered mental status, increased agitation, increased confusion, arthritis Subjective Information 76 year old female. High risk for BMI <18.5. Pt was seen in north chair in rec room. Pt was alert and talkative, able to answer all of RD's questions. Pt appeared slightly agitated, RD could not get closer and perform physical assessment due to this. EMR weight 100lb, pt appeared more than 100lb. Pt stated UBW 120lb. Pt asked for dinner, stated she is always hungry, with a great appetite, lunch was great. Avg PO intake 75-100% of meals since adm, meeting nutritional needs. Teeth intact, pt denied difficulties chewing/ swallowing. Current Diet Order/ Nutrition Support Regular Pertinent Medications Maalox, Remeron, Theragran, Seroquel Pertinent Labs 11/18: BUN 26H, cholesterol 236H Nutritional Hx/Data Height 1.52 m Height (Calculated Centimeters) 152.4 Current Weight (lbs) 41.277 kg Weight (Calculated Kilograms) 41.3 Weight (Calculated Grams) 79210.9 Usual body Weight (lbs) 120 [place] Body Weight 100 Weight Status Underweight GI Symptoms Food Allergies No Skin Integrity/Comment: Mike 19. Skin intact. Current %PO Good (75-100%) Estimated Nutritional Goals Calories/Kcals/Kg UBW 120lb/54.5kg Kcals Calculated 1363-1635kcal (25-30kcal/kg) Protein g/kg: UBW Protein Calculated 55g (1g/kg) Fluid: ml 3616-3043 Nutritional Problem 1. Problem Problem No nutrition problems. Intervention/Recommendation Comments 1. Continue with curent diet. Avg PO intake is adequate. 2. Monitor weight, perform physical assessment. EMR weight 91lb, BMI 17.8 underweight. Pt report UBW 120lb. Expected Outcomes/Goals Expected Outcomes/Goals 1. PO intake continue to meet at least 75% of estimated nutritional needs.
--- NOTE | 2016-11-24 22:17 | Progress Notes ---
DATE: 11/24/2016 PSYCHIATRIC PROGRESS NOTE TIME PATIENT SEEN: 8:30 a.m. SUBJECTIVE: Staff was spoken to. The patient is interviewed. Mood is noted to be irritable. Affect is constricted. Coping skills are noted to be poor. The patient is confused and demented and has been having visual hallucinations and stating that the people are doing things behind her back. The patient has been and the patient has no insight into her illness. ASSESSMENT: The patient is still grossly psychotic. PLAN: To continue the patient with supportive therapy and followup. JOB# [id number]
[2016-11-25] MEDS: Multivitamin Tab PO SCH (08:49)
--- NOTE | 2016-11-25 10:28 | General Progress Note ---
Subjective - Review of Systems Events since last encounter: patient is confused and demented having hallucinations Objective - Results Result Diagrams: 11/18/16 14:19 11/18/16 14:19 Recent Labs: Laboratory Last Values WBC 5.8 Th/cmm (4.8-10.8) 11/18/16 14:19 RBC 3.95 Mil/cmm (3.80-5.20) 11/18/16 14:19 Hgb 11.6 gm/dL (11.7-16.1) L 11/18/16 14:19 Hct 34.7 % (35.0-45.0) L 11/18/16 14:19 MCV 87.8 fl (81-100) 11/18/16 14:19 MCH 29.4 pg (27.0-31.0) 11/18/16 14:19 MCHC Differential 33.5 pg (28.0-36.0) 11/18/16 14:19 RDW 15.0 % (11.5-20.0) 11/18/16 14:19 Plt Count 255 Th/cmm (150-400) 11/18/16 14:19 MPV 6.5 fl 11/18/16 14:19 Neutrophils % 79.2 % (40.0-80.0) 11/18/16 14:19 Lymphocytes % 15.1 % (20.0-50.0) L 11/18/16 14:19 Monocytes % 4.7 % (2.0-10.0) 11/18/16 14:19 Eosinophils % 0.6 % (0.0-5.0) 11/18/16 14:19 Basophils % 0.4 % (0.0-2.0) 11/18/16 14:19 PT 9.6 SECONDS (9.5-11.5) 11/18/16 14:19 INR 0.92 (0.5-1.4) 11/18/16 14:19 Sodium 141 mEq/L (136-145) 11/18/16 14:19 Potassium 4.2 mEq/L (3.5-5.1) 11/18/16 14:19 Chloride 106 mEq/L (98-107) 11/18/16 14:19 Carbon Dioxide 31.7 mEq/L (21.0-31.0) H 11/18/16 14:19 Anion Gap 7.5 (7.0-16.0) 11/18/16 14:19 BUN 26 mg/dL (7-25) H 11/18/16 14:19 Creatinine 1.0 mg/dL (0.6-1.2) 11/18/16 14:19 Est GFR ( Amer) TNP 11/18/16 14:19 Est GFR (Non-Af Amer) TNP 11/18/16 14:19 BUN/Creatinine Ratio 26.0 11/18/16 14:19 Glucose 100 mg/dL (70-105) 11/18/16 14:19 Calcium 9.8 mg/dL (8.6-10.3) 11/18/16 14:19 Creatine Kinase 79 U/L (30-223) 11/18/16 14:19 Troponin I 0.01 ng/mL (0.01-0.05) 11/18/16 14:19 B-Natriuretic Peptide 382.0 pg/mL (5.0-100.0) H 11/18/16 14:19 Triglycerides 116 mg/dL (<150) 11/18/16 14:19 Cholesterol 236 mg/dL (<200) H 11/18/16 14:19 LDL Cholesterol Direct 126 mg/dL (75-193) 11/18/16 14:19 HDL Cholesterol 89 mg/dL (23-92) 11/18/16 14:19 Urine Source RANDOM 11/18/16 14:45 Urine Color YELLOW 11/18/16 14:45 Urine Clarity CLEAR (CLEAR) 11/18/16 14:45 Urine pH 6.0 11/18/16 14:45 Ur Specific [place] 1.020 (1.005-1.030) 11/18/16 14:45 Urine Protein TRACE mg/dL (NEGATIVE) 11/18/16 14:45 Urine Glucose (UA) NEGATIVE mg/dL (NEGATIVE) 11/18/16 14:45 Urine Ketones TRACE mg/dL (NEGATIVE) 11/18/16 14:45 Urine Blood SMALL (NEGATIVE) H 11/18/16 14:45 Urine Nitrate NEGATIVE (NEGATIVE) 11/18/16 14:45 Urine Bilirubin NEGATIVE (NEGATIVE) 11/18/16 14:45 Urine Urobilinogen 0.2 E.U./dL (0.2 - 1.0) 11/18/16 14:45 Ur Leukocyte Esterase NEGATIVE (NEGATIVE) 11/18/16 14:45 Urine RBC 2-5 /hpf (0-5) 11/18/16 14:45 Urine WBC NONE SEEN /hpf (0-5) 11/18/16 14:45 Ur Epithelial Cells NONE SEEN /lpf (FEW) 11/18/16 14:45 Urine Bacteria NONE SEEN /hpf (NONE SEEN) 11/18/16 14:45 - Physical Exam Vitals and I&O: Vital Signs Temp 97.5 F 11/25/16 06:21 Pulse 92 11/25/16 08:49 Resp 18 11/25/16 08:00 BP 162/75 11/25/16 08:49 Pulse Ox 97 11/25/16 08:00 Intake & Output 11/24/16 11/25/16 11/25/16 18:59 06:59 18:59 Intake Total 800 240 Balance 800 240 Intake: Oral 800 240 Other: # Voids 3 1 # Bowel Movements 1 0 Active Medications: Current Medications Acetaminophen (Tylenol) 650 mg PO Q4HR PRN PRN Reason: Mild Pain / Temp above 100 Stop: 01/17/17 22:53 Al Hydrox/Mg Hydrox/Simethicone (Maalox) 30 ml PO Q4HR PRN PRN Reason: GI DISTRESS Stop: 01/17/17 22:53 Albuterol Sulfate (Albuterol 2.5mg/3ml Neb Ud) 2.5 mg HHN Q4HRT PRN PRN Reason: Wheezing Stop: 01/17/17 22:59 Last Admin: 11/23/16 08:42 Dose: 2.5 mg Donepezil HCl (Aricept) 10 mg PO DAILY MAYA Stop: 01/17/17 18:44 Last Admin: 11/25/16 08:49 Dose: 10 mg Gabapentin (Neurontin) 300 mg PO HS MAYA Stop: 01/17/17 20:59 Last Admin: 11/24/16 21:11 Dose: 300 mg Lorazepam (Ativan) 0.5 mg PO BID PRN; Protocol PRN Reason: Anxiety Stop: 01/17/17 17:48 Last Admin: 11/19/16 20:41 Dose: 0.5 mg Metoprolol Tartrate (Lopressor) 12.5 mg PO BID MAYA Stop: 01/18/17 08:59 Last Admin: 11/25/16 08:49 Dose: 12.5 mg Mirtazapine (Remeron) 15 mg PO HS MAYA Stop: 01/17/17 20:59 Last Admin: 11/24/16 21:11 Dose: 15 mg Multivitamins/Vitamin C (Theragran) 1 tab PO DAILY MAYA Stop: 01/18/17 08:59 Last Admin: 11/25/16 08:49 Dose: 1 tab Quetiapine Fumarate (Seroquel) 25 mg PO HS MAYA PRN Reason: Protocol Stop: 01/20/17 18:59 Last Admin: 11/24/16 21:11 Dose: 25 mg Assessment/Plan - Problem List Patient Problems: All Active Problems Acute psychosis (Acute) F23 Dementia (Acute) F03.90 Diabetes (Acute) E11.9 Hypertension (Acute) I10 Osteoarthritis (Acute) M19.90 - Plan Plan: as per psych will monitor Nutritional Asmnt/Malnutr-PDOC - Dietary Evaluation Malnutrition Findings (Please click <Entered> for more info): Nutritional Asmnt/Malnutrition Start: 11/20/16 17: 50 Text: Status: Complete Freq: Document 11/20/16 17:50 GSUN (Rec: 11/20/16 18:04 GSUN [email or web address]) Nutritional Asmnt/Malnutrition Patient General Information Nutritional Screening High Risk Screening Diagnosis Severe dementia, ALOC, rule out metabolic disorder Pertinent Medical Hx/Surgical Hx Altered mental status, increased agitation, increased confusion, arthritis Subjective Information 76 year old female. High risk for BMI <18.5. Pt was seen in north chair in rec room. Pt was alert and talkative, able to answer all of RD's questions. Pt appeared slightly agitated, RD could not get closer and perform physical assessment due to this. EMR weight 100lb, pt appeared more than 100lb. Pt stated UBW 120lb. Pt asked for dinner, stated she is always hungry, with a great appetite, lunch was great. Avg PO intake 75-100% of meals since adm, meeting nutritional needs. Teeth intact, pt denied difficulties chewing/ swallowing. Current Diet Order/ Nutrition Support Regular Pertinent Medications Maalox, Remeron, Theragran, Seroquel Pertinent Labs 11/18: BUN 26H, cholesterol 236H Nutritional Hx/Data Height 1.52 m Height (Calculated Centimeters) 152.4 Current Weight (lbs) 41.277 kg Weight (Calculated Kilograms) 41.3 Weight (Calculated Grams) 81916.9 Usual body Weight (lbs) 120 [place] Body Weight 100 Weight Status Underweight GI Symptoms Food Allergies No Skin Integrity/Comment: Mike 19. Skin intact. Current %PO Good (75-100%) Estimated Nutritional Goals Calories/Kcals/Kg UBW 120lb/54.5kg Kcals Calculated 1363-1635kcal (25-30kcal/kg) Protein g/kg: UBW Protein Calculated 55g (1g/kg) Fluid: ml [id number] Nutritional Problem 1. Problem Problem No nutrition problems. Intervention/Recommendation Comments 1. Continue with curent diet. Avg PO intake is adequate. 2. Monitor weight, perform physical assessment. EMR weight 91lb, BMI 17.8 underweight. Pt report UBW 120lb. Expected Outcomes/Goals Expected Outcomes/Goals 1. PO intake continue to meet at least 75% of estimated nutritional needs.
--- NOTE | 2016-11-26 04:53 | Progress Notes ---
DATE: 11/25/2016 PSYCHIATRIC PROGRESS NOTE TIME PATIENT SEEN: 9:30 a.m. SUBJECTIVE: Staff was spoken to. The patient is interviewed. Mood is noted to be irritable. Affect is constricted. The patient continues to be irritable and angry and has been actively responding to internal stimuli. Coping skills are noted to be very poor at this time. No side effects to the medications are noted. The patient is on Seroquel and is able to tolerate the medication. ASSESSMENT: The patient is still psychotic and impulsive. PLAN: To continue the patient with the current medications and follow. JOB# [id number]
[2016-11-26] MEDS: Multivitamin Tab PO SCH (08:22)
--- NOTE | 2016-11-26 14:51 | General Progress Note ---
Subjective - Review of Systems Events since last encounter: no distress Objective - Results Result Diagrams: 11/18/16 14:19 11/18/16 14:19 Recent Labs: Laboratory Last Values WBC 5.8 Th/cmm (4.8-10.8) 11/18/16 14:19 RBC 3.95 Mil/cmm (3.80-5.20) 11/18/16 14:19 Hgb 11.6 gm/dL (11.7-16.1) L 11/18/16 14:19 Hct 34.7 % (35.0-45.0) L 11/18/16 14:19 MCV 87.8 fl (81-100) 11/18/16 14:19 MCH 29.4 pg (27.0-31.0) 11/18/16 14:19 MCHC Differential 33.5 pg (28.0-36.0) 11/18/16 14:19 RDW 15.0 % (11.5-20.0) 11/18/16 14:19 Plt Count 255 Th/cmm (150-400) 11/18/16 14:19 MPV 6.5 fl 11/18/16 14:19 Neutrophils % 79.2 % (40.0-80.0) 11/18/16 14:19 Lymphocytes % 15.1 % (20.0-50.0) L 11/18/16 14:19 Monocytes % 4.7 % (2.0-10.0) 11/18/16 14:19 Eosinophils % 0.6 % (0.0-5.0) 11/18/16 14:19 Basophils % 0.4 % (0.0-2.0) 11/18/16 14:19 PT 9.6 SECONDS (9.5-11.5) 11/18/16 14:19 INR 0.92 (0.5-1.4) 11/18/16 14:19 Sodium 141 mEq/L (136-145) 11/18/16 14:19 Potassium 4.2 mEq/L (3.5-5.1) 11/18/16 14:19 Chloride 106 mEq/L (98-107) 11/18/16 14:19 Carbon Dioxide 31.7 mEq/L (21.0-31.0) H 11/18/16 14:19 Anion Gap 7.5 (7.0-16.0) 11/18/16 14:19 BUN 26 mg/dL (7-25) H 11/18/16 14:19 Creatinine 1.0 mg/dL (0.6-1.2) 11/18/16 14:19 Est GFR ( Amer) TNP 11/18/16 14:19 Est GFR (Non-Af Amer) TNP 11/18/16 14:19 BUN/Creatinine Ratio 26.0 11/18/16 14:19 Glucose 100 mg/dL (70-105) 11/18/16 14:19 Calcium 9.8 mg/dL (8.6-10.3) 11/18/16 14:19 Creatine Kinase 79 U/L (30-223) 11/18/16 14:19 Troponin I 0.01 ng/mL (0.01-0.05) 11/18/16 14:19 B-Natriuretic Peptide 382.0 pg/mL (5.0-100.0) H 11/18/16 14:19 Triglycerides 116 mg/dL (<150) 11/18/16 14:19 Cholesterol 236 mg/dL (<200) H 11/18/16 14:19 LDL Cholesterol Direct 126 mg/dL (75-193) 11/18/16 14:19 HDL Cholesterol 89 mg/dL (23-92) 11/18/16 14:19 Urine Source RANDOM 11/18/16 14:45 Urine Color YELLOW 11/18/16 14:45 Urine Clarity CLEAR (CLEAR) 11/18/16 14:45 Urine pH 6.0 11/18/16 14:45 Ur Specific [place] 1.020 (1.005-1.030) 11/18/16 14:45 Urine Protein TRACE mg/dL (NEGATIVE) 11/18/16 14:45 Urine Glucose (UA) NEGATIVE mg/dL (NEGATIVE) 11/18/16 14:45 Urine Ketones TRACE mg/dL (NEGATIVE) 11/18/16 14:45 Urine Blood SMALL (NEGATIVE) H 11/18/16 14:45 Urine Nitrate NEGATIVE (NEGATIVE) 11/18/16 14:45 Urine Bilirubin NEGATIVE (NEGATIVE) 11/18/16 14:45 Urine Urobilinogen 0.2 E.U./dL (0.2 - 1.0) 11/18/16 14:45 Ur Leukocyte Esterase NEGATIVE (NEGATIVE) 11/18/16 14:45 Urine RBC 2-5 /hpf (0-5) 11/18/16 14:45 Urine WBC NONE SEEN /hpf (0-5) 11/18/16 14:45 Ur Epithelial Cells NONE SEEN /lpf (FEW) 11/18/16 14:45 Urine Bacteria NONE SEEN /hpf (NONE SEEN) 11/18/16 14:45 - Physical Exam Vitals and I&O: Vital Signs Temp 98.2 F 11/26/16 06:22 Pulse 81 11/26/16 08:22 Resp 20 11/26/16 06:22 BP 123/64 11/26/16 08:22 Pulse Ox 96 11/26/16 06:22 Intake & Output 11/25/16 11/26/16 11/26/16 18:59 06:59 18:59 Intake Total 1500 120 Balance 1500 120 Intake: Oral 1500 120 Other: # Voids 5 3 # Bowel Movements 1 0 Stool Characteristics Soft Active Medications: Current Medications Acetaminophen (Tylenol) 650 mg PO Q4HR PRN PRN Reason: Mild Pain / Temp above 100 Stop: 01/17/17 22:53 Al Hydrox/Mg Hydrox/Simethicone (Maalox) 30 ml PO Q4HR PRN PRN Reason: GI DISTRESS Stop: 01/17/17 22:53 Albuterol Sulfate (Albuterol 2.5mg/3ml Neb Ud) 2.5 mg HHN Q4HRT PRN PRN Reason: Wheezing Stop: 01/17/17 22:59 Last Admin: 11/23/16 08:42 Dose: 2.5 mg Donepezil HCl (Aricept) 10 mg PO DAILY [facility] Stop: 01/17/17 18:44 Last Admin: 11/26/16 08:22 Dose: 10 mg Gabapentin (Neurontin) 300 mg PO HS [facility] Stop: 01/17/17 20:59 Last Admin: 11/25/16 20:16 Dose: 300 mg Metoprolol Tartrate (Lopressor) 12.5 mg PO BID [facility] Stop: 01/18/17 08:59 Last Admin: 11/26/16 08:22 Dose: 12.5 mg Mirtazapine (Remeron) 15 mg PO HS [facility] Stop: 01/17/17 20:59 Last Admin: 11/25/16 20:16 Dose: 15 mg Multivitamins/Vitamin C (Theragran) 1 tab PO DAILY [facility] Stop: 01/18/17 08:59 Last Admin: 11/26/16 08:22 Dose: 1 tab Quetiapine Fumarate (Seroquel) 25 mg PO HS [facility] PRN Reason: Protocol Stop: 01/20/17 18:59 Last Admin: 11/25/16 20:16 Dose: 25 mg General: No acute distress HEENT: Atraumatic Neck: Supple Cardiovascular: Regular rate Abdomen: Bowel sounds Assessment/Plan - Problem List Patient Problems: All Active Problems Acute psychosis (Acute) F23 Dementia (Acute) F03.90 Diabetes (Acute) E11.9 Hypertension (Acute) I10 Osteoarthritis (Acute) M19.90 - Plan Plan: as per psych will monitor Nutritional Asmnt/Malnutr-PDOC - Dietary Evaluation Malnutrition Findings (Please click <Entered> for more info): Nutritional Asmnt/Malnutrition Start: 11/20/16 17: 50 Text: Status: Complete Freq: Document 11/20/16 17:50 GSUN (Rec: 11/20/16 18:04 GSUN [email or web address]) Nutritional Asmnt/Malnutrition Patient General Information Nutritional Screening High Risk Screening Diagnosis Severe dementia, ALOC, rule out metabolic disorder Pertinent Medical Hx/Surgical Hx Altered mental status, increased agitation, increased confusion, arthritis Subjective Information 76 year old female. High risk for BMI <18.5. Pt was seen in north chair in rec room. Pt was alert and talkative, able to answer all of RD's questions. Pt appeared slightly agitated, RD could not get closer and perform physical assessment due to this. EMR weight 100lb, pt appeared more than 100lb. Pt stated UBW 120lb. Pt asked for dinner, stated she is always hungry, with a great appetite, lunch was great. Avg PO intake 75-100% of meals since adm, meeting nutritional needs. Teeth intact, pt denied difficulties chewing/ swallowing. Current Diet Order/ Nutrition Support Regular Pertinent Medications Maalox, Remeron, Theragran, Seroquel Pertinent Labs 11/18: BUN 26H, cholesterol 236H Nutritional Hx/Data Height 1.52 m Height (Calculated Centimeters) 152.4 Current Weight (lbs) 41.277 kg Weight (Calculated Kilograms) 41.3 Weight (Calculated Grams) 24853.9 Usual body Weight (lbs) 120 [place] Body Weight 100 Weight Status Underweight GI Symptoms Food Allergies No Skin Integrity/Comment: Mike Graham. Skin intact. Current %PO Good (75-100%) Estimated Nutritional Goals Calories/Kcals/Kg UBW 120lb/54.5kg Kcals Calculated 1363-1635kcal (25-30kcal/kg) Protein g/kg: UBW Protein Calculated 55g (1g/kg) Fluid: ml 1136-3410 Nutritional Problem 1. Problem Problem No nutrition problems. Intervention/Recommendation Comments 1. Continue with curent diet. Avg PO intake is adequate. 2. Monitor weight, perform physical assessment. EMR weight 91lb, BMI 17.8 underweight. Pt report UBW 120lb. Expected Outcomes/Goals Expected Outcomes/Goals 1. PO intake continue to meet at least 75% of estimated nutritional needs.
--- NOTE | 2016-11-27 08:17 | General Progress Note ---
Subjective - Review of Systems Events since last encounter: no distress Objective - Results Result Diagrams: 11/18/16 14:19 11/18/16 14:19 Recent Labs: Laboratory Last Values WBC 5.8 Th/cmm (4.8-10.8) 11/18/16 14:19 RBC 3.95 Mil/cmm (3.80-5.20) 11/18/16 14:19 Hgb 11.6 gm/dL (11.7-16.1) L 11/18/16 14:19 Hct 34.7 % (35.0-45.0) L 11/18/16 14:19 MCV 87.8 fl (81-100) 11/18/16 14:19 MCH 29.4 pg (27.0-31.0) 11/18/16 14:19 MCHC Differential 33.5 pg (28.0-36.0) 11/18/16 14:19 RDW 15.0 % (11.5-20.0) 11/18/16 14:19 Plt Count 255 Th/cmm (150-400) 11/18/16 14:19 MPV 6.5 fl 11/18/16 14:19 Neutrophils % 79.2 % (40.0-80.0) 11/18/16 14:19 Lymphocytes % 15.1 % (20.0-50.0) L 11/18/16 14:19 Monocytes % 4.7 % (2.0-10.0) 11/18/16 14:19 Eosinophils % 0.6 % (0.0-5.0) 11/18/16 14:19 Basophils % 0.4 % (0.0-2.0) 11/18/16 14:19 PT 9.6 SECONDS (9.5-11.5) 11/18/16 14:19 INR 0.92 (0.5-1.4) 11/18/16 14:19 Sodium 141 mEq/L (136-145) 11/18/16 14:19 Potassium 4.2 mEq/L (3.5-5.1) 11/18/16 14:19 Chloride 106 mEq/L (98-107) 11/18/16 14:19 Carbon Dioxide 31.7 mEq/L (21.0-31.0) H 11/18/16 14:19 Anion Gap 7.5 (7.0-16.0) 11/18/16 14:19 BUN 26 mg/dL (7-25) H 11/18/16 14:19 Creatinine 1.0 mg/dL (0.6-1.2) 11/18/16 14:19 Est GFR ( Amer) TNP 11/18/16 14:19 Est GFR (Non-Af Amer) TNP 11/18/16 14:19 BUN/Creatinine Ratio 26.0 11/18/16 14:19 Glucose 100 mg/dL (70-105) 11/18/16 14:19 Calcium 9.8 mg/dL (8.6-10.3) 11/18/16 14:19 Creatine Kinase 79 U/L (30-223) 11/18/16 14:19 Troponin I 0.01 ng/mL (0.01-0.05) 11/18/16 14:19 B-Natriuretic Peptide 382.0 pg/mL (5.0-100.0) H 11/18/16 14:19 Triglycerides 116 mg/dL (<150) 11/18/16 14:19 Cholesterol 236 mg/dL (<200) H 11/18/16 14:19 LDL Cholesterol Direct 126 mg/dL (75-193) 11/18/16 14:19 HDL Cholesterol 89 mg/dL (23-92) 11/18/16 14:19 Urine Source RANDOM 11/18/16 14:45 Urine Color YELLOW 11/18/16 14:45 Urine Clarity CLEAR (CLEAR) 11/18/16 14:45 Urine pH 6.0 11/18/16 14:45 Ur Specific [place] 1.020 (1.005-1.030) 11/18/16 14:45 Urine Protein TRACE mg/dL (NEGATIVE) 11/18/16 14:45 Urine Glucose (UA) NEGATIVE mg/dL (NEGATIVE) 11/18/16 14:45 Urine Ketones TRACE mg/dL (NEGATIVE) 11/18/16 14:45 Urine Blood SMALL (NEGATIVE) H 11/18/16 14:45 Urine Nitrate NEGATIVE (NEGATIVE) 11/18/16 14:45 Urine Bilirubin NEGATIVE (NEGATIVE) 11/18/16 14:45 Urine Urobilinogen 0.2 E.U./dL (0.2 - 1.0) 11/18/16 14:45 Ur Leukocyte Esterase NEGATIVE (NEGATIVE) 11/18/16 14:45 Urine RBC 2-5 /hpf (0-5) 11/18/16 14:45 Urine WBC NONE SEEN /hpf (0-5) 11/18/16 14:45 Ur Epithelial Cells NONE SEEN /lpf (FEW) 11/18/16 14:45 Urine Bacteria NONE SEEN /hpf (NONE SEEN) 11/18/16 14:45 - Physical Exam Vitals and I&O: Vital Signs Temp 97.5 F 11/27/16 06:23 Pulse 96 11/27/16 06:23 Resp 18 11/27/16 06:23 BP 125/69 11/27/16 06:23 Pulse Ox 96 11/27/16 06:23 Intake & Output 11/26/16 11/27/16 11/27/16 18:59 06:59 18:59 Intake Total 1800 120 Balance 1800 120 Intake: Oral 1800 120 Other: # Voids 4 3 # Bowel Movements 0 Active Medications: Current Medications Acetaminophen (Tylenol) 650 mg PO Q4HR PRN PRN Reason: Mild Pain / Temp above 100 Stop: 01/17/17 22:53 Al Hydrox/Mg Hydrox/Simethicone (Maalox) 30 ml PO Q4HR PRN PRN Reason: GI DISTRESS Stop: 01/17/17 22:53 Albuterol Sulfate (Albuterol 2.5mg/3ml Neb Ud) 2.5 mg HHN Q4HRT PRN PRN Reason: Wheezing Stop: 01/17/17 22:59 Last Admin: 11/23/16 08:42 Dose: 2.5 mg Donepezil HCl (Aricept) 10 mg PO DAILY [facility] Stop: 01/17/17 18:44 Last Admin: 11/26/16 08:22 Dose: 10 mg Gabapentin (Neurontin) 300 mg PO HS [facility] Stop: 01/17/17 20:59 Last Admin: 11/26/16 20:47 Dose: 300 mg Metoprolol Tartrate (Lopressor) 12.5 mg PO BID [facility] Stop: 01/18/17 08:59 Last Admin: 11/26/16 16:17 Dose: Not Given Mirtazapine (Remeron) 15 mg PO HS [facility] Stop: 01/17/17 20:59 Last Admin: 11/26/16 20:47 Dose: 15 mg Multivitamins/Vitamin C (Theragran) 1 tab PO DAILY [facility] Stop: 01/18/17 08:59 Last Admin: 11/26/16 08:22 Dose: 1 tab Quetiapine Fumarate (Seroquel) 25 mg PO HS [facility] PRN Reason: Protocol Stop: 01/20/17 18:59 Last Admin: 11/26/16 20:47 Dose: 25 mg General: No acute distress HEENT: Atraumatic Neck: Supple Cardiovascular: Regular rate Abdomen: Bowel sounds Assessment/Plan - Problem List Patient Problems: All Active Problems Acute psychosis (Acute) F23 Dementia (Acute) F03.90 Diabetes (Acute) E11.9 Hypertension (Acute) I10 Osteoarthritis (Acute) M19.90 - Plan Plan: as per psych will monitor Nutritional Asmnt/Malnutr-PDOC - Dietary Evaluation Malnutrition Findings (Please click <Entered> for more info): Nutritional Asmnt/Malnutrition Start: 11/20/16 17: 50 Text: Status: Complete Freq: Document 11/20/16 17:50 GSUN (Rec: 11/20/16 18:04 GSUN [email or web address]) Nutritional Asmnt/Malnutrition Patient General Information Nutritional Screening High Risk Screening Diagnosis Severe dementia, ALOC, rule out metabolic disorder Pertinent Medical Hx/Surgical Hx Altered mental status, increased agitation, increased confusion, arthritis Subjective Information 76 year old female. High risk for BMI <18.5. Pt was seen in north chair in rec room. Pt was alert and talkative, able to answer all of RD's questions. Pt appeared slightly agitated, RD could not get closer and perform physical assessment due to this. EMR weight 100lb, pt appeared more than 100lb. Pt stated UBW 120lb. Pt asked for dinner, stated she is always hungry, with a great appetite, lunch was great. Avg PO intake 75-100% of meals since adm, meeting nutritional needs. Teeth intact, pt denied difficulties chewing/ swallowing. Current Diet Order/ Nutrition Support Regular Pertinent Medications Maalox, Remeron, Theragran, Seroquel Pertinent Labs 11/18: BUN 26H, cholesterol 236H Nutritional Hx/Data Height 1.52 m Height (Calculated Centimeters) 152.4 Current Weight (lbs) 41.277 kg Weight (Calculated Kilograms) 41.3 Weight (Calculated Grams) 94164.9 Usual body Weight (lbs) 120 [place] Body Weight 100 Weight Status Underweight GI Symptoms Food Allergies No Skin Integrity/Comment: Mike 19. Skin intact. Current %PO Good (75-100%) Estimated Nutritional Goals Calories/Kcals/Kg UBW 120lb/54.5kg Kcals Calculated 1363-1635kcal (25-30kcal/kg) Protein g/kg: UBW Protein Calculated 55g (1g/kg) Fluid: ml 8644-7603 Nutritional Problem 1. Problem Problem No nutrition problems. Intervention/Recommendation Comments 1. Continue with curent diet. Avg PO intake is adequate. 2. Monitor weight, perform physical assessment. EMR weight 91lb, BMI 17.8 underweight. Pt report UBW 120lb. Expected Outcomes/Goals Expected Outcomes/Goals 1. PO intake continue to meet at least 75% of estimated nutritional needs.
[2016-11-27] MEDS: Multivitamin Tab PO SCH (09:44)
--- NOTE | 2016-11-27 17:05 | Progress Notes ---
DATE: 11/26/2016 PSYCHIATRIC PROGRESS NOTE TIME PATIENT SEEN: 5:30 p.m. SUBJECTIVE: Staff was spoken to. The patient is interviewed. Mood is noted to be irritable. Affect is constricted. The patient is pacing on the unit. The patient has paranoia, but denies any command hallucinations today. Insight and judgment are noted to be still impaired. Impulse control seems to be improving. No side effects to the medications are noted. ASSESSMENT: The patient is still paranoid, but the confused state is resolving. PLAN: To continue the patient with Seroquel and followup. JOB# [id number]
--- NOTE | 2016-11-27 21:44 | Discharge Summary ---
DATE OF DISCHARGE: 11/27/2016 IDENTIFYING DATA: The patient is a 76-year-old woman reported to have admitted here on a voluntary basis in view of her confusion, memory loss, and paranoid delusions. CHIEF COMPLAINT: "I'm scared." HISTORY OF PRESENT ILLNESS: Please refer to the 11/18/2016 dictation done by me. Physical examination was done by Dr. Star Sellers and is within normal limits except for arthritis. HOSPITAL COURSE AND RESPONSE TO TREATMENT: The patient had the blood work done and has been reviewed by Dr. Sellers and hospital course and response to treatment. The patient has been placed on the Seroquel, which was gradually increased to 25 mg. The patient has been able to tolerate and her sleep and appetite started to improve and the psychosis started to resolve and hence it is decided to discharge the patient on to Healthcare. MENTAL STATUS EXAMINATION: At the time of the discharge, the patient's mood is noted to be anxious. Affect is appropriate, not suicidal or homicidal. Insight and judgment noted to be fair. Impulse control is also noted to be fair. No side effects to the medications are noted. DIAGNOSES AT THE TIME OF DISCHARGE: AXIS IA: Psychosis, unspecified. AXIS IB: Dementia and behavioral change, secondary to it. AXIS II: None. AXIS III: Arthritis. AFTERCARE PLAN: The patient is discharged to the shelter facility for further followup. [facility]# [id number]
--- NOTE | 2016-11-29 12:19 | Discharge Summary ---
DATE OF DISCHARGE: 11/27/2016 This patient was admitted through the ER of [facility] to Geropsych Unit with severe dementia, altered level of consciousness, history of dementia, arthritis, hypertension, diabetes. I followed the patient, given medications, improved. Dr. Curry saw the patient and finally the patient was discharged in stable condition on November 27. MEDICATIONS: See the reconciliation sheet. [facility]# [id number]
== END 2016-11-27 13:30 | DRG 885 ==
LOC: ER 12:47 → GERO 16:34
PROVIDERS: ADMIT Psychiatry & Neurology Psychiatry; ATTEND Psychiatry & Neurology Psychiatry
DX: F29 Unspecified psychosis not due to a substance or known physiological condition (principal); E11.9 Type 2 diabetes mellitus without complications; G30.9 Alzheimer's disease, unspecified; F02.80 Dementia in other diseases classified elsewhere, unspecified severity, without behavioral disturbance, psychotic disturbance, mood disturbance, and anxiety; M19.90 Unspecified osteoarthritis, unspecified site; R45.87 Impulsiveness; I10 Essential (primary) hypertension; Z86.73 Personal history of transient ischemic attack (TIA), and cerebral infarction without residual deficits; Z85.118 Personal history of other malignant neoplasm of bronchus and lung; Z82.49 Family history of ischemic heart disease and other diseases of the circulatory system; Z80.9 Family history of malignant neoplasm, unspecified; Z83.3 Family history of diabetes mellitus; R44.1 Visual hallucinations
CPT/HCPCS: 36415-UA; 70450-TC; 71010-TC; 80048-TC; 80061-TC; 81001-TC; 82550-TC; 83880-TC; 84484-TC; 85025-TC; 85610-TC; 90899; 93005; 94640; 94760; J7613; Z7610